=== PATIENT | female | born 1985 | race Caucasian/White ===

== ENCOUNTER 2018-08-22 19:40 | Inpatient (IN) | payer OTHER ==
[2018-08-22] MEDS ORDERED: OXYTOCIN 30 UNITS in 0.9% NS 30 UNIT/500 ML INFUS.BAG IVPB ONE (20:34)
[2018-08-22] MEDS ORDERED: BUTORPHANOL TARTRATE 1 MG/ML VIAL IVPB ONE (20:44)
[2018-08-22] MEDS ORDERED: PROMETHAZINE HCL 25 MG/1 ML VIAL IVPB ONE (20:44)
--- NOTE | 2018-08-22 20:44 | HP ---
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 Short interval 3. Multip for BTL PP 4. Bed bugs this 5. Cat in the house - not caring for the litter History Source: Patient, Medical Record Limitations to Obtaining History: No Limitations - Past Medical History Gastrointestinal: Yes: Hemorrhoids (anal fissure) ...: 3 ...Para: 2 ...Term: 2 ...EDC by Valentino: 08/29/18 Heme/Onc: Yes: Anemia (resolved with iron transfusions, last ) Infectious Disease: Yes: STD's, Other (HSV) - Past Surgical History Past Surgical History: Yes: None Hx Myomectomy: No Hx Transabdominal Cerclage: No - Smoking History Smoking history: Never smoked Have you smoked in the past 12 months: No - Alcohol/Substance Use Hx Alcohol Use: No History of Substance Use: reports: None - Social History Usual Living Arrangement: Yes: With Spouse ADL: Independent Occupation: Student History of Recent Travel: No Home Medications - Allergies Allergies/Adverse Reactions: Allergies Allergy/AdvReac Type Severity Reaction Status Date / Time No Known Allergies Allergy Verified 09/23/17 03:12 - Home Medications Home Medications: Ambulatory Orders Ferrous Sulfate [Feosol] 325 mg PO DAILY 09/23/17 Vitamins (Sjr) - 1 tab PO DAILY 09/23/17 Valacyclovir HCl [Valtrex -] 500 mg PO DAILY 09/23/17 Family Disease History - Family Disease History Family History: Unremarkable Review of Systems - Review of Systems Constitutional: reports: No Symptoms Eyes: reports: No Symptoms HENT: reports: No Symptoms Neck: reports: No Symptoms Cardiovascular: reports: No Symptoms Respiratory: reports: No Symptoms Gastrointestinal: reports: No Symptoms Genitourinary: reports: No Symptoms Breasts: reports: No Symptoms Reported Musculoskeletal: reports: No Symptoms Integumentary: reports: No Symptoms Neurological: reports: No Symptoms Endocrine: reports: No Symptoms Hematology/Lymphatic: reports: No Symptoms Psychiatric: reports: No Symptoms Physical Exam - Maternity Constitutional: Yes: Well Nourished, No Distress, Calm Eyes: Yes: WNL HENT: Yes: WNL Neck: Yes: WNL Cardiovascular: Yes: WNL, Regular Rate and Rhythm Lungs: Clear to auscultation Breast(s): Yes: WNL - Abdominal Exam/OB Fundal Height: 39 (EFW 7lb) Number of Fetuses: Single Presentation: Vertex Contractions: Yes Regularity: Irregular Intensity: Mild Monitor Mode: External Heart Rate (range): 140's Heart Rate Location: Midline Category: I Accelerations: Uniform Decelerations: None - Vaginal Exam/OB Vaginal Bleediing: No Speculum Exam: No (no HSV lesions) Dilatation (cm): 5-6cm Effacement (%): 80% Amniotic Membrane Status: Intact Nitrazine Test: Negative Presentation: Vertex/Position Station: -2 - Physical Exam Musculoskeletal: Yes: WNL Extremities: Yes: WNL Edema: No Integumentary: Yes: WNL ...Motor Strength: WNL Psychiatric: Yes: WNL, Alert, Oriented - Labs Lab Results: PNL: Opos/RI/ HIV neg/HBsAg neg/RPR neg Assessment/Plan 33yo P2 @39wks with advanced cervical dilation at term Admit to L&D NPO, IVF, Labs Augment with Pitocin GBS negative, no need for Antibiotics AROM for augmentation anticipate desires Stadol/Phenergan as a choice of pain management
[2018-08-22] MEDS ORDERED: DEXTROSE 5%-LACTATED RINGERS 1,000 ML IV SCH (20:45)
[2018-08-22] MEDS ORDERED: ELECTROLYTE-148 SOLN 1,000 ML IV SCH (20:45)
[2018-08-22] MEDS ORDERED: OXYTOCIN 30 UNITS in 0.9% NS 30 UNIT/500 ML INFUS.BAG IVPB SCH (20:45)
[2018-08-22 20:47] LABS: BASO % 0.3 % (0-2.0); EOS % 0.2 % (0-4.5); HEMATOCRIT 34.1 % (32.4-45.2); HEMOGLOBIN 11.4 GM/dL (10.7-15.3); LYMPH % 19.6 % (8-40); MCH 31.5 pg (25.7-33.7); MCHC 33.5 g/dl (32.0-36.0); MEAN CELL VOLUME 94.1 fl (80-96); MEAN PLT VOLUME 7.9 fl (7.5-11.1); MONO % 6.9 % (3.8-10.2); PLATELET COUNT 252 K/MM3 (134-434); RBC 3.63 M/mm3 (3.60-5.2); WHITE BLOOD COUNT 6.6 K/mm3 (4.0-10.0)
[2018-08-22 21:13] LABS: BLOOD UREA NITROGEN 8.1 mg/dL (7-18); CALCIUM 8.7 mg/dL (8.5-10.1); CREATININE 0.7 mg/dL (0.55-1.3); POTASSIUM 3.8 mmol/L (3.5-5.1)
[2018-08-22 21:18] LABS: INR 0.87 (0.83-1.09); PROTHROMBIN TIME (PATIENT) 10.2 SEC (9.7-13.0)
[2018-08-22 21:21] LABS: ACTIVATED PTT 25.7 SECONDS (25.2-36.5)
[2018-08-22 21:49] VITALS: BMI 26.4
[2018-08-22] MEDS ORDERED: OXYTOCIN 20 UNITS in 0.9% NS 20 UNIT/1,000 ML INFUS.BAG IV ONE (22:57)
[2018-08-22] MEDS ORDERED: LIDOCAINE HCL 1% PRESERVATIVE FREE - 30ML VIAL ONE (22:59)
[2018-08-22] MEDS ORDERED: IBUPROFEN 600 MG TABLET (FP) PO ONE (23:21)
[2018-08-22] MEDS ORDERED: ACETAMINOPHEN 325 MG TABLET (FP) ONE (23:21)
[2018-08-22] MEDS ORDERED: METHYLERGONOVINE MALEATE 0.2 MG/1 ML AMP IM PRN (23:24)
[2018-08-22] MEDS ORDERED: BENZOCAINE 20% 57 GM BOTTLE TP PRN (23:24)
[2018-08-22] MEDS ORDERED: WITCH HAZEL 50% (TUCKS) 40 PAD/JAR PAD TP PRN (23:24)
[2018-08-22] MEDS ORDERED: BISACODYL 10 MG SUPP.RECT RC PRN (23:24)
[2018-08-22] MEDS ORDERED: BENZOCAINE 28 GM HEMORRHOIDAL OINTMENT TP PRN (23:24)
--- NOTE | 2018-08-22 23:29 | PN ---
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
[2018-08-22] MEDS ORDERED: D5W-LR W/ 20 UNITS OXYTOCIN 20 UNIT/1,000 ML INFUS.BAG IV SCH (23:30)
[2018-08-22] MEDS: IBUPROFEN 600 MG TABLET (FP) PO PRN (23:30)
[2018-08-22] MEDS: ACETAMINOPHEN 325 MG TABLET (FP) PO PRN (23:30)
[2018-08-23 00:33] LABS: VENOUS PC02 41.9 mmHg (41-51); VENOUS PH 7.35 (7.31-7.41)
[2018-08-23 06:48] LABS: BASO % 0.2 % (0-2.0); EOS % 0.4 % (0-4.5); HEMATOCRIT 33.7 % (32.4-45.2); HEMOGLOBIN 11.3 GM/dL (10.7-15.3); LYMPH % 18.6 % (8-40); MCH 31.3 pg (25.7-33.7); MCHC 33.4 g/dl (32.0-36.0); MEAN CELL VOLUME 93.7 fl (80-96); MONO % 7.7 % (3.8-10.2); NEUT % 73.1 % (42.8-82.8); PLATELET COUNT 230 K/MM3 (134-434); RDW 13.3 % (11.6-15.6); WHITE BLOOD COUNT 7.8 K/mm3 (4.0-10.0)
--- NOTE | 2018-08-23 07:53 | PN ---
Post Progress Note - Subjective Subjective: Patient without acute complaints. Reports tolerating oral intake without nausea or vomiting. Ambulating without dizziness. Denies fevers or chills. Pain well controlled with oral pain medication. without difficulty. Passing flatus. Post Day: 1 Type of Delivery: Vital Signs: Vital Signs Temperature 98.2 F 08/23/18 05:48 Pulse Rate 66 08/23/18 05:48 Respiratory Rate 18 08/23/18 05:48 Blood Pressure 112/55 L 08/23/18 05:48 O2 Sat by Pulse Oximetry (%) Breast Exam: Yes: Soft Uterus: Yes: Fundus Firm Abdomen/GI: Yes: Abdomen soft Lochia: Yes: Rubra Lochia, amount: Small Extremities: Yes: Calves non-tender Perineum: Yes: Laceration (healing well) Activity: Ambulating - Labs Labs: CBC WBC 7.8 K/mm3 (4.0-10.0) 08/23/18 06:10 RBC 3.60 M/mm3 (3.60-5.2) 08/23/18 06:10 Hgb 11.3 GM/dL (10.7-15.3) 08/23/18 06:10 Hct 33.7 % (32.4-45.2) 08/23/18 06:10 MCV 93.7 fl (80-96) 08/23/18 06:10 MCH 31.3 pg (25.7-33.7) 08/23/18 06:10 MCHC 33.4 g/dl (32.0-36.0) 08/23/18 06:10 RDW 13.3 % (11.6-15.6) 08/23/18 06:10 Plt Count 230 K/MM3 (134-434) 08/23/18 06:10 MPV 8.0 fl (7.5-11.1) 08/23/18 06:10 Absolute Neuts (auto) 5.7 K/mm3 (1.5-8.0) 08/23/18 06:10 Neutrophils % 73.1 % (42.8-82.8) 08/23/18 06:10 Lymphocytes % 18.6 % (8-40) 08/23/18 06:10 Monocytes % 7.7 % (3.8-10.2) 08/23/18 06:10 Eosinophils % 0.4 % (0-4.5) D 08/23/18 06:10 Basophils % 0.2 % (0-2.0) 08/23/18 06:10 Nucleated RBC % 0 % (0-0) 08/23/18 06:10 Assessment/Plan 33yo P3 s/p Doing well, Afebrile, VSS h/h stable Rh pos - no need for RhoGam cont routine care
[2018-08-23] MEDS: IBUPROFEN 600 MG TABLET (FP) PO PRN ×2 (09:10→17:35)
[2018-08-23] MEDS: ACETAMINOPHEN 325 MG TABLET (FP) PO PRN ×2 (09:11→17:35)
[2018-08-23] MEDS: PRENATAL VITAMINS W/ FOLIC ACID TABLET (FP) PO SCH (09:11)
[2018-08-23] MEDS: FERROUS SO4 325 MG TABLET (FP) PO SCH ×2 (09:11→21:41)
[2018-08-23] MEDS ORDERED: SENNOSIDES/DOCUSATE COMBO (SENNA PLUS) TABLET (UD) PO PRN (22:00)
[2018-08-24 10:29] VITALS: BP 92/59; PULSE 78; TEMP 98.1
[2018-08-24] MEDS: PRENATAL VITAMINS W/ FOLIC ACID TABLET (FP) PO SCH (10:47)
[2018-08-24] MEDS: FERROUS SO4 325 MG TABLET (FP) PO SCH (10:47)
--- NOTE | 2018-08-24 13:27 | DS ---
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 Signs: Vital Signs Temperature 98.1 F 08/24/18 10:00 Pulse Rate 78 08/24/18 10:00 Respiratory Rate 18 08/24/18 10:00 Blood Pressure 92/59 L 08/24/18 10:00 O2 Sat by Pulse Oximetry (%) Constitutional: Yes: Well Nourished, No Distress Eyes: Yes: WNL, Conjunctiva Clear HENT: Yes: WNL, Atraumatic Neck: Yes: WNL, Supple, Trachea Midline Cardiovascular: Yes: WNL, Regular Rate and Rhythm Respiratory: Yes: WNL, Regular, CTA Bilaterally Gastrointestinal: Yes: WNL, Normal Bowel Sounds, Soft Renal/: Yes: WNL Pelvis: Yes: WNL External Genitalia: Yes: Normal Vaginal Exam: Yes: Normal ....Post : Yes: Uterus firm, Uterus non-tender Breast(s): Yes: WNL Musculoskeletal: Yes: WNL Extremities: Yes: WNL Edema: No Integumentary: Yes: WNL Neurological: Yes: WNL, Alert, Oriented ...Motor Strength: WNL Psychiatric: Yes: WNL, Alert, Oriented Labs: CBC, BMP 08/23/18 06:10 08/22/18 20:00 Delivery - Delivery Vaginal Delivery: No Problems Type of Anesthesia: Local Episiotomy/Laceration: Midline, 1st degree EBL (cc): 200 Delivery, Single - Stages of Labor Date 1st Stage Initiatied: 08/22/18 Time 1st Stage Initiated: 20:30 Date 2nd Stage Initiated: 08/22/18 Time 2nd Stage Initiated: 22:55 Date of Delivery: 08/22/18 Time of Delivery: 23:00 Date Placenta Delivered: 08/22/18 Time Placenta Delivered: 23:10 Placenta: Yes: Spontaneous - 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 Gender: Female Weight: 7 lb 4 oz Position: Left, OA Total Hours ROM (Hrs/Mins): 50m - 1 Minute Total Score: 9 5 Minutes Total Score: 9 - [place] Feeding Plan Initial Plan: Exclusive throughout hospitalization Benefits of Exclusively reinforced: Yes Remarks - Remarks Remarks: Uncomplicated vaginal delivery of head and shoulders Discharge Summary Reason For Visit: LABOR ADMIT Procedures: Principal: normal spontaneous vaginal delivery Hospital Course: Unremarcable Condition: Good - Instructions Diet, Activity, Other Instructions: Physical activity Resume your normal everyday activity as tolerated no heavy lifting or exercise until seen by your surgeon. You may walk unlimited martin of and climb stairs. You may resume driving the car when you feel safe and comfortable behind the wheel. No sexual activity as instructed. Wound care If you have a bandage, leave it on, and keep dry for 48-72 hours. After that time discard the outer bandage. If they are tapes on the skin under the out of bandage leave them in place. They will peel off in the next 7 to 10 days. Do Not Peel them off. You may shower the day after surgery. If there are tapes present on the skin, you may shower over them. Diet There are no dietary restrictions. Eat healthy, high-fiber foods. Drink 6 to 8 glasses of liquid each day. This will assist in keeping your bowels are regular. Pain management You may take Tylenol or acetaminophen or Ibuprofen (for example, Motrin, Advil etc.) from my pain prescription medication is ordered should be taken as prescribed for moderate to severe pain. Call MD for any of the following: Severe pain not relieved by medication Fever of 101 or higher Excessive bleeding or drainage on dressing Inability to urinate Referrals: Katty Pineda MD [Staff Physician] - Disposition: HOME - Home Medications Comprehensive Discharge Medication List: Ambulatory Orders Valacyclovir HCl [Valtrex -] 500 mg PO DAILY 09/23/17
== END 2018-08-24 13:15 | disposition home or self-care (01) | DRG 560 ==
LOC: JLDR 19:40 → J3W 08-23 01:00
PROVIDERS: ADMIT Obstetrics & Gynecology; ATTEND Obstetrics & Gynecology
PROC: 10E0XZZ Delivery of Products of Conception, External Approach (ICD-10-PCS; principal; 2018-08-22)
PROC: 0W8NXZZ Division of Female Perineum, External Approach (ICD-10-PCS; 2018-08-22)
PROC: 0HQ9XZZ Repair Perineum Skin, External Approach (ICD-10-PCS; 2018-08-22)
DX: O70.0 First degree perineal laceration during delivery (principal); Z3A.39 39 weeks gestation of pregnancy; Z37.0 Single live birth
CPT/HCPCS: 36415; 59409; 80048; 82803; 85025; 85610; 85730; 86593; 86850; 86900; 86901; 87389